=== PATIENT | female | born 1970 | race Caucasian/White ===

== ENCOUNTER 2017-02-24 18:53 | Outpatient (CLI) | payer MEDICARE | END 2017-02-24 18:54 | disposition critical access hospital (66) | DX: M54.2 Cervicalgia (principal); W01.0XXA Fall on same level from slipping, tripping and stumbling without subsequent striking against object, initial encounter; Y92.028 Other place in mobile home as the place of occurrence of the external cause | CPT/HCPCS: A0425; A0429 ==

== ENCOUNTER 2017-02-24 19:09 | Emergency (ER) | payer MEDICARE ==
[2017-02-24] MEDS ORDERED: oxyCOD/ACETAMIN 5 MG/325 MG TABLET PO STA (20:14)
[2017-02-24] MEDS ORDERED: oxyCOD/ACETAMIN 5 MG/325 MG TABLET PO ONE (20:17)
[2017-02-24] MEDS ORDERED: LIDOCAINE PATCH 5% TOP STA (21:36)
[2017-02-24] MEDS ORDERED: LIDOCAINE PATCH 5% TOP ONE (21:38)
== END 2017-02-24 21:50 | disposition home or self-care (01) ==
DX: S13.9XXA Sprain of joints and ligaments of unspecified parts of neck, initial encounter (principal); W10.9XXA Fall (on) (from) unspecified stairs and steps, initial encounter; Y92.029 Unspecified place in mobile home as the place of occurrence of the external cause; G35 Multiple sclerosis; I10 Essential (primary) hypertension; F17.200 Nicotine dependence, unspecified, uncomplicated
CPT/HCPCS: 72125; 99283; A9270